=== PATIENT | female | born 1985 | race Caucasian/White ===

== ENCOUNTER 2017-06-28 11:23 | Emergency (ER) | payer OTHER ==
[~2017-06-28] VITALS: Ht 165.1 cm; Wt 87.5 kg
[2017-06-28] MEDS ORDERED: HYDROmorphone PF 1 MG/ML DISP.SYRIN IM ONE (12:00)
[2017-06-28] MEDS ORDERED: KETOROLAC 60 MG/2 ML VIAL. IM ONE (12:00)
[2017-06-28] MEDS ORDERED: NAPR500T PO (12:01)
[2017-06-28] MEDS ORDERED: HYDR-2758 PO (12:01)
--- NOTE | 2017-06-28 12:01 | PHYS DOC ---
Past History Additional Past Medical Histor: chronic lower back pain Past Surgical History: Tonsillectomy Additional Past Surgical Histo: Brenden-en-Y, tummy tuck, breast reduction Smoking: Non-smoker Alcohol Use: Occasionally Drug Use: None Adult General Chief Complaint Chief Complaint: BACK PAIN OR INJURY [facility] He is a pleasant 31-year-old female with a history of chronic back pain is been going on for years between T12 and L5. Patient is under the care of her primary care doctor as well as a physiatry and pain management physician is doing local injections. She's also been undergoing physical therapy for last year in an attempt to reduce her weight as well as strengthen her back muscles and improve her symptomatology. Patient admits her symptoms today are progressively worse because she worked for the first time yesterday a full-time job. 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 She noted that there is a lot of twisting motion with her actions that exacerbate her symptoms. We came this morning her pain is 6 and now worse describes as an 8 of 10 with decreased range of motion secondary to pain and spasm in her lower back. She attempted to call her primary care doctor for follow-up today was not able to get an appointment until next month. Patient denies any bowel or bladder incontinence, denies any UTI symptoms, denies any fevers, chills, nausea, weight loss, diarrhea, vomiting or other symptoms. She also denies any specific trauma to her lower back. There is nothing new about this back pain other than the fact of acute exacerbation. She is worried that she might lose her job if she does not have a work note and any reason to be off. She is not under pain management contract at this time. Review of Systems Review of Systems Constitutional: Denies fever or chills [] Eyes: Denies change in visual acuity, redness, or eye pain [] HENT: Denies nasal congestion or sore throat [] Respiratory: Denies cough or shortness of breath [] Cardiovascular: No additional information not addressed in [facility] [] GI: Denies abdominal pain, nausea, vomiting, bloody stools or diarrhea [] : Denies dysuria or hematuria [] Musculoskeletal: Patient ways palmarly of lower back pain with radiation to her groin or lower legs.. Integument: Denies rash or skin lesions [] Neurologic: Denies headache, focal weakness or sensory changes [] Endocrine: Denies polyuria or polydipsia [] Allergies Allergies Allergies Coded Allergies Type Severity Reaction Last Updated Verified No Known Drug Allergies 06/28/17 No Physical Exam Physical Exam Vital signs noted and within normal limits Constitutional: Well developed, well nourished, no acute distress, she is uncomfortable sitting in a crisscross leg incision. Neck: Normal range of motion, no tenderness, supple, no stridor. [] Cardiovascular:Heart rate regular rhythm, no murmur [] Lungs & Thorax: Bilateral breath sounds clear to auscultation [] Skin: Warm, dry, no erythema, no rash. [] Back he has noted tenderness to the erector spinae muscles on both the right and left side between T12 and L4. There is no obvious signs of warmth or skin changes consistent with epidural abscess. Patient has no significant midline abnormalities other than tenderness palpation which is chronic for patient and nothing new. Patient has a negative straight leg raise bilaterally normal strength in her lower legs to 5 out of 5 to resistance. She has normal range of motion at the ankles knees and hips. Extremities: No tenderness, no cyanosis, no clubbing, ROM intact, no edema. [] Capillary refill is brisk +2 Neurologic: Alert and oriented X 3, normal motor function, normal sensory function, no focal deficits noted. [] Psychologic: Affect normal, judgement normal, mood normal. [] EKG EKG [] Radiology/Procedures Radiology/Procedures [] Course & Med Decision Making Course & Med Decision Making Pertinent Labs and Imaging studies reviewed. (See chart for details) Patient presents with chronic lower back pain she is had no new symptoms today no evidence of cauda equina, no renal disease or kidney stones in the past. Patient does not complain of UTI or pyelonephritis symptoms, she denies any direct trauma. Other than a twisting motion that may be exacerbated her chronic long-standing lower back pain. At this point I do not feel compelled to do any radiological studies. She and at bedside are in agreement. She will be offered IM pain medications for discomfort and follow up with her primary doctor on Saturday. Impression: Acute exacerbation of chronic lower back pain Disposition: PCP follow-up with physical therapy referral and back to her management doctor. [] Dragon Disclaimer Dragon Disclaimer This chart was dictated in whole or in part using Voice Recognition software in a busy, high-work load, and often noisy Emergency Department environment. It may contain unintended and wholly unrecognized errors or omissions. Departure Departure: Impression: Primary Impression: Chronic lower back pain Disposition: HOME, SELF-CARE Condition: IMPROVED Referrals: TONNY FORD DO, [facility] (PCP) Patient Instructions: Back Pain, Adult, Chronic Back Pain, Chronic Pain Management Additional Instructions: These return for any new or increasing symptoms especially numbness and tingling to her legs or groin bowel or bladder incontinence fevers night sweats or weight loss or any UTI symptoms. Please follow-up with your primary care doctor as soon as possible to arrange physical therapy evaluation and continued management of your chronic pain with her chronic pain management physician. Scripts Naproxen (NAPROSYN) 500 Mg Tablet 1 TAB PO BID, #20 TAB 1 Refill Prov: DORIAN VERA MD 06/28/17 Hydrocodone Bit/Acetaminophen (HYDROCODONE-APAP 5-325 ) 1 Each Tablet 1 TAB PO PRN Q6HRS Y for PAIN for 5 Days, #14 TAB 0 Refills Prov: DORIAN VERA MD 06/28/17 DORIAN VERA MD Jun 28, 2017 12:01
[2017-06-28 12:39] VITALS: BP 142/73
== END 2017-06-28 12:43 | disposition home or self-care (01) ==
LOC: ER 11:23
DX: G89.29 Other chronic pain (principal); M54.5 Low back pain
CPT/HCPCS: 96372; 99284; J1170; J1885

== ENCOUNTER → 2017-07-30 | Outpatient (CLI) | payer OTHER ==
[~2017-07-30] MED LIST: BUPIVACAINE MPF 0.25% 10 ML VIAL. ONE; DEXAMETHASONE SOD PHOS 4 MG/ML VIAL ONE; HYDR-2758 PO; LIDOCAINE 1% PF 30 ML VIAL. ONE; NAPR500T PO
== END | disposition home or self-care (01) ==
LOC: SURG 13:52
PROVIDERS: ATTEND Anesthesiology
DX: M47.816 Spondylosis without myelopathy or radiculopathy, lumbar region (principal); F41.9 Anxiety disorder, unspecified; F32.9 Major depressive disorder, single episode, unspecified; Z72.89 Other problems related to lifestyle; Z90.49 Acquired absence of other specified parts of digestive tract; Z98.890 Other specified postprocedural states
CPT/HCPCS: 64635; 64636; J1100; J2001; J3490

== ENCOUNTER → 2017-08-13 | Outpatient (CLI) | payer OTHER ==
[~2017-08-13] MED LIST changes: +IV NORMAL SALINE 250ML 250 ML ONE; +LIDOCAINE (700MG/PATCH) PATCH. ONE; +MIDAZOLAM HCL PF 2 MG/2 ML VIAL. ONE
== END | disposition home or self-care (01) ==
LOC: SURG 12:35
PROVIDERS: ATTEND Anesthesiology
DX: M47.816 Spondylosis without myelopathy or radiculopathy, lumbar region (principal); F32.9 Major depressive disorder, single episode, unspecified; F41.9 Anxiety disorder, unspecified; Z98.890 Other specified postprocedural states; Z72.89 Other problems related to lifestyle
CPT/HCPCS: 64635; 64636; J1100; J2001; J2250; J3010; J3490; J7050

== ENCOUNTER → 2018-02-19 | Outpatient (CLI) | payer OTHER ==
[~2018-02-19] MED LIST changes: -BUPIVACAINE MPF 0.25% 10 ML VIAL. ONE; -DEXAMETHASONE SOD PHOS 4 MG/ML VIAL ONE; -IV NORMAL SALINE 250ML 250 ML ONE; -LIDOCAINE (700MG/PATCH) PATCH. ONE; -LIDOCAINE 1% PF 30 ML VIAL. ONE; -MIDAZOLAM HCL PF 2 MG/2 ML VIAL. ONE; +NAPR-683 PO; -NAPR500T PO
== END | disposition home or self-care (01) ==
LOC: SURG 13:39
PROVIDERS: ATTEND Anesthesiology Pain Medicine
DX: M54.5 Low back pain (principal); G89.29 Other chronic pain; Z90.49 Acquired absence of other specified parts of digestive tract
CPT/HCPCS: 99213